=== PATIENT | female | born 1995 | race Asian ===

== ENCOUNTER 2018-08-16 03:56 | Emergency (ER) | payer BC ==
[2018-08-16] MEDS ORDERED: PENICILLIN V POTASSIUM 500 MG TABLET PO ONE (06:09)
--- NOTE | 2018-08-16 06:11 | ER Document Report ---
HPI - HPI Time Seen by Provider: 08/16/18 05:49 Pain Level: 5 Context: Patient is a 22-year-old female that comes to the emergency department for chief complaint of pain along her left jaw area. She has reports pain when chewing. She also reports a mild swelling sensation over the left side of her face. She denies neck pain, sore throat, fever, headache. She denies history of the same. She denies any past medical history. She denies . Father at bedside. - REPRODUCTIVE Reproductive: DENIES: : Past Medical History - General Information source: Patient, Parent - Social History Smoking Status: Never Smoker Frequency of alcohol use: None Drug Abuse: None Lives with: Family Family History: Reviewed & Not Pertinent - Medical History Medical History: Negative Surgical Hx: Negative - Immunizations Immunizations up to date: Yes Hx Diphtheria, Pertussis, Tetanus Vaccination: Yes Vertical Provider Document - CONSTITUTIONAL General Appearance: WD/WN, No Apparent Distress, Obese - INFECTION CONTROL TRAVEL OUTSIDE OF THE [place] IN LAST 30 DAYS: No - HEENT HEENT: Atraumatic, Normocephalic, PERRLA. negative: Conjuctival Injection, Pharyngeal Exudate, Pharyngeal Tenderness, Pharyngeal Erythema, Tympanic Membrane Red, Tympanic Membrane Bulging Mouth Diagram: 1 - Dental caries with surrounding erythema and tenderness of the gumline. No induration, fluctuance, or area suggesting abscess. Remaining oral pharyngeal exam is unremarkable, patent airway. - NECK Neck: Normal Inspection. negative: Lymphadenopathy-Left, Lymphadenopathy-Right - RESPIRATORY Respiratory: Breath Sounds Normal, No Respiratory Distress - CARDIOVASCULAR Cardiovascular: Regular Rate, Regular Rhythm - GI/ABDOMEN Gastrointestinal: Abdomen Soft, Abdomen Non-Tender - BACK Back: Normal Inspection - MUSCULOSKELETAL/EXTREMETIES Musculoskeletal/Extremeties: MAEW, FROM, Non-Tender - NEURO Level of Consciousness: Awake, Alert, Appropriate Motor/Sensory: No Motor Deficit, No Sensory Deficit - DERM Integumentary: Warm, Dry, No Rash Course - Re-evaluation Re-evalutation: Patient's examination is consistent with dental caries and a secondary infection. No severe swelling of the face, no evidence of abscess. Discussed treatment, follow-up, patient already has a dentist that she can follow-up with. Discussed return precautions in detail. Patient and father state understanding and agreement. - Vital Signs Vital signs: Temp Pulse Resp BP Pulse Ox 98.3 F 83 16 130/79 H 100 08/16/18 04:18 08/16/18 04:18 08/16/18 04:18 08/16/18 04:18 08/16/18 04:18 Discharge - Discharge Clinical Impression: Pain, dental Condition: Stable Disposition: HOME, SELF-CARE Additional Instructions: Your evaluation is consistent with a dental infection. Take antibiotics as prescribed to completion. Call your dentist and make a close follow-up appointment for additional evaluation and management. Return if you worsen including swelling of the face. Prescriptions: Penicillin V Potassium [Penicillin Vk 500 mg Tablet] 500 mg PO BID #20 tablet Forms: Return to Work Referrals: CARLI STACK MD [COMMUNITY BASED STAFF] - Follow up as needed
[2018-08-16 06:32] VITALS: BP 132/68
== END 2018-08-16 06:32 | disposition home or self-care (01) ==
LOC: ER 03:56
DX: K02.9 Dental caries, unspecified (principal); K08.89 Other specified disorders of teeth and supporting structures
CPT/HCPCS: 99283

== ENCOUNTER 2018-12-23 11:08 | Emergency (ER) | payer BC ==
[2018-12-23 11:18] VITALS: BP 138/77
[2018-12-23] MEDS ORDERED: DEXAMETHASONE SOD PHOS INJ 10 MG/1 ML VIAL IM ONE (12:18)
--- NOTE | 2018-12-23 12:21 | ER Document Report ---
HPI - HPI Time Seen by Provider: 12/23/18 12:14 Pain Level: 5 Notes: Patient is a 23-year-old female no significant past medical history who presents complaining of a sore throat when she woke up this morning. Patient is on occasion does feel like she has a little trouble swallowing, but nothing currently. She is able to eat and drink without difficulty. She is urinating normally. Denies drug allergies. No other concerns or complaints. Denies any headache, fever, neck pain, URI, drooling, hoarseness, chest pain, palpitations, syncope, cough, shortness of breath, wheeze, dyspnea, abdominal pain, nausea/vomiting/diarrhea, urinary retention, dysuria, hematuria, or rash. - ROS Systems Reviewed and Negative: Yes All other systems reviewed and negative - REPRODUCTIVE Reproductive: DENIES: : Past Medical History - Social History Smoking Status: Never Smoker Family History: Reviewed & Not Pertinent Renal/ Medical History: Denies: Hx Peritoneal Dialysis - Immunizations Immunizations up to date: Yes Hx Diphtheria, Pertussis, Tetanus Vaccination: Yes Vertical Provider Document - CONSTITUTIONAL Agree With Documented VS: Yes Notes: PHYSICAL EXAMINATION: GENERAL: Well-appearing, well-nourished and in no acute distress. A&Ox4. Answers questions appropriately. Moves comfortably w/o notable distress HEAD: Atraumatic, normocephalic. EYES: Pupils equal round and reactive to light, extraocular movements intact, sclera anicteric, conjunctiva are normal. ENT: EAC clear b/l. TM's intact b/l without erythema, fluid, or perforation. Nares patent and with clear discharge. oropharynx no erythema without exudates. 2+ tonsilar hypertrophy with mild erythema no exudate. No palatine shift. U vula midline. No tongue protrusion. No drooling, hoarseness, or airway compromise. Moist mucous membranes. No sinus tenderness. NECK: Normal range of motion, supple without lymphadenopathy. No r igidity/meningismus. LUNGS: Breath sounds clear to auscultation bilaterally and equal. No wheezes rales or rhonchi. No retractions HEART: Regular rate and rhythm without murmurs, rubs, gallops. ABDOMEN: Soft, nontender, nondistended abdomen. No guarding, no rebound. Normal bowel sounds present. No CVA tenderness bilaterally. No hepatosplenomegaly. NEUROLOGICAL: Normal speech, normal gait. PSYCH: Normal mood, normal affect. SKIN: Warm, Dry, normal turgor, no rashes or lesions noted. - INFECTION CONTROL TRAVEL OUTSIDE OF THE [place] IN LAST 30 DAYS: No Course - Re-evaluation Re-evalutation: 12/23/18 12:20 Patient is an afebrile, well-hydrated, 23-year-old female who presents with a sore throat, suspect viral. Vitals are acceptable tachycardia, tachypnea, or hypoxia. PE is unremarkable. Patient was given Decadron for the sensation intermittently having trouble swallowing with 2+ tonsillar hypertrophy noted. Rapid strep was negative with culture pending. No further work-up warranted. Patient is otherwise nontoxic-appearing is able to tolerate p.o. without difficulty. There is no airway compromise at this time. Low suspicion for any meningitis, sepsis, peritonsillar/pharyngeal abscess, respiratory compromise, Héctor's, or other emergent systemic condition at this time. Patient is aware this condition can change from initial presentation and she needs to monitor symptoms closely. Conservative measures otherwise for symptoms. Recheck with your PCM in 2-3 days. Return to the ED with any worsening/concerning symptoms otherwise as reviewed in discharge. Patient is in agreement. - Vital Signs Vital signs: Temp Pulse Resp BP Pulse Ox 98.9 F 84 16 138/77 H 99 12/23/18 11:16 12/23/18 11:16 12/23/18 11:16 12/23/18 11:16 12/23/18 11:16 Discharge - Discharge Clinical Impression: Sore throat Condition: Stable Disposition: HOME, SELF-CARE Instructions: Sore Throat ([facility]) Additional Instructions: Maintain adequate fluid intake Take meds as directed Salt water gargles, throat sprays, mouthwash rinse, peroxide gargles tylenol/ibuprofen as needed over the counter cold medication as needed for symptoms F/u: with your PCM in 2-3 days for a recheck Consider consult with ENT for ongoing/worsening symptoms Return to the ED with any fever, worsening pain, chest pain, neck pain/stiffness, shortness of breath, cough, drooling, trouble swallowing/breathing, abdominal pain, n/v/d, rash, or worsening/concerning symptoms otherwise. Forms: Elevated Blood Pressure Referrals: CIERRA ISAACS DO [ASSOCIATE] - Follow up as needed
== END 2018-12-23 12:28 | disposition home or self-care (01) ==
LOC: ER 11:08
DX: J02.9 Acute pharyngitis, unspecified (principal); J35.1 Hypertrophy of tonsils; R09.89 Other specified symptoms and signs involving the circulatory and respiratory systems
CPT/HCPCS: 87070; 87880; J1100; 96372; 99283